=== PATIENT | male | born 1975 | race Caucasian/White ===

== ENCOUNTER 2020-10-12 08:15 | Emergency (ER) | payer BC, SELFPAY ==
[2020-10-12 08:28] VITALS: BP 137/94; PULSE 109; RESP 16; TEMP 37.3; O2SAT 99
--- NOTE | 2020-10-12 08:28 | ED.GENADULT ---
HPI - General Adult General Chief complaint: Urogenital-Male Stated complaint: uti Time Seen by Provider: 10/12/20 08:29 Source: patient and RN notes reviewed Mode of arrival: ambulatory Limitations: no limitations History of Present Illness HPI narrative: 45-year-old male presents with complaints of dysuria for 1 day. ?Aubrey reports increasing symptoms throughout the night, this morning noted blood in urine. ?Dysuria consists of burning, decreased urine, hematuria, suprapubic pain, and urgency.? No treatment.? History of dual kidney transplants, dialysis, and UTIs. ?Denies fever or chills.? Denies nausea, vomiting, and abdominal pain.? Tolerating po intake well. ?No genital discharge.? No concerns for STDs. ?No flank pain.? Exacerbating factors urinating.? Denies genital ?bleeding. ?Remains active. ?The patient reports he has not been diagnosed with COVID-19. ?The patient reports he received 2 Pfizer COVID-19 vaccines. ?The patient reports he is not waiting for the results of a COVID-19 lab test. ?The patient reports he does not have sweats, weakness, or fatigue. ?The patient reports he does not have a new or worsening cough or shortness of breath. ?Denies chest pain. ?The patient reports he does not have any rhinorrhea, congestion, loss of taste or smell, sore throat, and diarrhea. ?Denies recent traveling. ?Denies concerns for COVID-19 or exposures. At this time, the patient is not suspected of having COVID-19 Some parts of this dictation were generated by voice recognition software and may contain typographical and/or grammatical inaccuracies. Related Data Home Medications Medication Instructions Recorded Confirmed mycophenolate mofetil 10/12/20 tacrolimus 10/12/20 Allergies Allergy/AdvReac Type Severity Reaction Status Date / Time nafcillin Allergy Other Verified 10/12/20 08:35 Review of Systems Review of Systems: Narrative: CONSTITUTIONAL: Denies fever, chills, sweats. EYES: Denies visual changes, redness, discharge. ENT: Denies rhinorrhea, congestion, sore throat, otalgia. CARDIOVASCULAR: Denies chest pain, palpitations, edema. RESPIRATORY: Denies dyspnea, wheezing, cough. GASTROINTESTINAL: Denies abdominal pain, nausea, vomiting, diarrhea. GENITOURINARY: Complains of dysuria (burning, decreased urine, suprapubic pain, and urgency), hematuria. Denies abnormal discharge. SKIN: Denies rash or itching. MUSCULOSKELETAL: Denies acute back pain, joint pain, or myalgia. NEUROLOGIC: Denies numbness or focal weakness. PSYCHIATRIC: Denies anxiety or depression. All other systems reviewed are negative, except as documented in HPI and below. 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, was used for dialysis prior to kidney transplant History of recurrent UTIs Kidney transplant failure First transplant lasted for 14 years Urethral stricture At causing him to go into kidney failure Surgical History Surgical History (Updated 10/12/20 @ 08:59 by STEPHANIE Alexandra) History of abdominal surgery History of parathyroid surgery Hx of artificial heart valve replacement Kidney transplanted X2 dual Social History Social History (Updated 10/12/20 @ 09:00 by STEPHANIE Alexandra) Smoking status: Never smoker Tobacco type: cigarettes Second hand tobacco smoke exposure: No Alcohol intake: current Substance use: never Substance use type: does not use Living arrangements: with family Occupation/Education: occupation Gender identity (if verbalized by the patient): Male Sexual Orientation (if Verbalized by the Patient): Straight or Heterosexual Comments At time of signature, agree with the nurse past medical, surgical, social, and family history.? There is no relevant family history pertinent to the presenting complaint. Exam Narrative: Exam Narrative: GENERAL: This is a well-nourished, well-develope
[2020-10-12 08:36] VITALS: BP 137/94; PULSE 109; RESP 16; TEMP 37.3; O2SAT 99
[2020-10-12 09:00] VITALS: BP 132/86; PULSE 102
== END 2020-10-12 09:00 | disposition home or self-care (01) ==
PROVIDERS: Emergency Provider Nurse Practitioner Family
DX: R30.0 Dysuria (principal); Z94.0 Kidney transplant status; Z95.2 Presence of prosthetic heart valve
CPT/HCPCS: 81003; 87077; 87086; 87088; 99203; G0463

== ENCOUNTER 2020-11-20 08:16 | Emergency (ER) | payer BC, SELFPAY ==
--- NOTE | ~2020-11-20 | XR_ITS ---
EXAMINATION: XR chest 2V DATE: 11/20/2020 08:59 INDICATION: Cough TECHNIQUE: PA and lateral views of the chest are obtained. COMPARISON: None available FINDINGS: There are patchy bilateral airspace opacities. There is no pleural effusion or pneumothorax . The heart size is normal. The visualized bones and soft tissues are unremarkable. Median sternotomy wires are consistent with prior cardiac surgery. Surgical clips are also noted in the upper mediasti num as well as the upper abdomen. IMPRESSION: 1. Patchy bilateral airspace opacities, consistent with atelectasis versus pneumonia. Reviewed, dictated and finalized at location A. IMPRESSION: 1. Patchy bilateral airspace opacities, consistent with atelectasis versus pneu monia.
[2020-11-20 08:23] VITALS: BP 127/96; PULSE 96; RESP 18; TEMP 37.1; O2SAT 99
--- NOTE | 2020-11-20 08:50 | ED.URI ---
HPI - URI/Sore Throat General Chief Complaint: Upper Respiratory Infection Stated Complaint: Cough Time Seen by Provider: 11/20/20 08:34 Source: patient and RN notes reviewed Mode of arrival: ambulatory Limitations: no limitations History of Present Illness HPI Narrative: Patient presents today with a 6-day history of headache, body aches, postnasal drip, productive cough, sore throat, rhinorrhea. Denies fever. Patient has been taking some DayQuil with mild relief. He has history of 2 kidney transplants. Reports multiple sick contacts at work. He has had the COVID-19 vaccine. elicited complaint: cough Related Data Home Medications Medication Instructions Recorded Confirmed mycophenolate mofetil 10/12/20 tacrolimus 10/12/20 warfarin 5 mg PO DAILY 11/20/20 11/20/20 warfarin 7.5 mg PO DAILY 11/20/20 11/20/20 Allergies Allergy/AdvReac Type Severity Reaction Status Date / Time nafcillin Allergy Other Verified 10/12/20 08:35 Review of Systems Review of Systems: CONSTITUTIONAL: Denies fever, chills, or sweats.+ Body aches EYES: Denies visual changes, redness, or discharge. ENT: Denies congestion, or otalgia.+ Rhinorrhea, postnasal drip CARDIOVASCULAR: Denies chest pain, palpitations, or edema. RESPIRATORY: Denies dyspnea.+ Cough GASTROINTESTINAL: Denies abdominal pain, nausea, vomiting, or diarrhea. GENITOURINARY: Denies dysuria or hematuria. SKIN: Denies rash, itching, or wounds. MUSCULOSKELETAL: Denies back pain, joint pain, or myalgia. NEUROLOGIC: Denies numbness, tingling, or weakness.+ Headache PSYCH: Denies depression or anxiety. 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, was used for dialysis prior to kidney transplant History of recurrent UTIs Kidney transplant failure First transplant lasted for 14 years Urethral stricture At causing him to go into kidney failure Surgical History Surgical History History of abdominal surgery History of parathyroid surgery Hx of artificial heart valve replacement Kidney transplanted X2 dual Social History Social History Smoking status: Never smoker Tobacco type: cigarettes Second hand tobacco smoke exposure: No Alcohol intake: current Substance use: never Substance use type: does not use Gender identity (if verbalized by the patient): Male Comments At time of signature, I have reviewed and agree with nursing past medical, surgical, social and family history unless otherwise noted. Please see nursing chart for further information. There is no relevant family history pertinent to the presenting complaint Exam Narrative: GENERAL: Well-appearing, well-nourished, and in no acute distress. HEAD: Normocephalic, atraumatic. EYES: EOMI. No redness or drainage. Conjunctivae normal. ENT: Mucous membranes pink and moist. Nares clear. No rhinorrhea. TMs normal bilaterally. Throat normal. Uvula midline. NECK: Normal AROM. Supple. No lymphadenopathy. CHEST: No respiratory distress. Coarse in the bilateral bases, otherwise clear. HEART: Regular rate and rhythm. No murmur appreciated. Normal peripheral pulses. ABDOMEN: Soft, nontender, nondistended, normal active bowel sounds. MUSCULOSKELETAL: No bony tenderness. EXTREMITIES: Normal range of motion. No edema. SKIN: Warm, dry, no rash. Capillary refill normal. Normal skin turgor. NEURO: No focal deficits. Alert and oriented x3. Gait steady. PSYCH: Normal affect. No signs of depression or anxiety. Course Vital Signs Vital signs: Vital Signs Temperature 98.8 F 11/20/20 08:23 Pulse Rate 96 11/20/20 08:23 Respiratory Rate 18 11/20/20 08:23 Blood Pressure 127/96 H 11/20/20 08:23 Pulse Oximetry 99 11/20/20 08:23 Temperature 98.8 F 11/20/20
== END 2020-11-20 09:39 | disposition home or self-care (01) ==
PROVIDERS: Emergency Provider Nurse Practitioner
DX: J18.9 Pneumonia, unspecified organism (principal); Z20.822 Contact with and (suspected) exposure to COVID-19; Z94.0 Kidney transplant status; Z79.01 Long term (current) use of anticoagulants; Z95.2 Presence of prosthetic heart valve
CPT/HCPCS: 71046; 87426; 99213; C9803; G0463

== ENCOUNTER 2021-10-05 14:59 | Emergency (ER) | payer BC, SELFPAY ==
[2021-10-05 15:12] VITALS: BP 136/96; PULSE 82; RESP 16; TEMP 37.2; O2SAT 99
--- NOTE | 2021-10-05 15:17 | ED.RECABL ---
HPI - Recheck/Abnormal Lab/Rx General Chief Complaint: Recheck/Abnormal Lab/Rx Stated Complaint: Medicine Refill Time Seen by Provider: 10/05/21 15:02 Source: patient Mode of arrival: ambulatory Limitations: no limitations History of Present Illness HPI narrative: Mr. Chowdhury is a 46-year-old male patient presenting to the clinic today with complaints of being out of his Coumadin x2 days. 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 States that he takes 7.5 mg of Coumadin during the week and 5 mg on Friday and Friday. He does have an at home INR/PT machine. He denies any chest pain or shortness of breath at this time. He states that he has had a history of a transplant of the kidney in the past. Also reports the reasoning for taking the Coumadin is because he has heart valve. Related Data Home Medications Medication Instructions Recorded Confirmed mycophenolate mofetil 10/12/20 tacrolimus 10/12/20 warfarin 5 mg tablet 5 mg PO DAILY 11/20/20 11/20/20 warfarin 7.5 mg tablet 7.5 mg PO DAILY 11/20/20 11/20/20 Allergies Allergy/AdvReac Type Severity Reaction Status Date / Time nafcillin Allergy Other Verified 10/12/20 08:35 Review of Systems Review of Systems: Pertinent positives per HPI. Patient denies any fever, chills, rash, headache, visual changes, dizziness, cough, runny nose, sore throat, shortness of breath, chest pain, palpitations, nausea, vomiting, diarrhea, constipation, abdominal pain, or any urinary issues. 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, was used for dialysis prior to kidney transplant History of recurrent UTIs Kidney transplant failure First transplant lasted for 14 years Urethral stricture At causing him to go into kidney failure Surgical History Surgical History History of abdominal surgery History of parathyroid surgery Hx of artificial heart valve replacement Kidney transplanted X2 dual Social History Social History Smoking status: Never smoker Tobacco type: cigarettes Second hand tobacco smoke exposure: No Alcohol intake: current Substance use: never Substance use type: does not use Gender identity (if verbalized by the patient): Male Sexual Orientation (if Verbalized by the Patient): Straight or Heterosexual Comments At the time of my signature, I reviewed and agree with the nursing past medical, surgical, social, and family history. There is no relevant family history pertinent to the patient complaint. Exam Narrative: General: Well-developed, well nourished, in no apparent distress Head: Normocephalic, atraumatic Mouth: Oropharynx without lesions or masses, good dentition, MMM. Neck: Supple, trachea midline, no enlargement of anterior or posterior cervical nodes, no thyroid masses or goiter palpable. Cardio: Regular rate and rhythm, s1 and s2 normal, no murmur appreciated. Resp: Clear to auscultation bilaterally anteriorly and posteriorly, no rhonchi, rales, wheezing or rubs Course Course Emergency Course: Portions of this record may have been created with voice recognition software. Level of Care: Express Care Visit Vital Signs Vital signs: Vital Signs Temperature 37.2 C 10/05/21 15:12 Pulse Rate 82 10/05/21 15:12 Respiratory Rate 16 10/05/21 15:12 Blood Pressure 136/96 H 10/05/21 15:12 Pulse Oximetry 99 10/05/21 15:12 Oxygen Delivery Room Air 10/05/21 15:12 Temperature 37.2 C 10/05/21 15:21 Pulse Rate 82 10/05/21 15:21 Respiratory Rate 16 10/05/21 15:21 Blood Pressure 136/96 H 10/05/21 15:21 Pulse Oximetry 99 10/05/21 15:21 Oxygen Delivery Room Air 10/05/21 15:21 Vital signs reviewed MDM - Recheck/Abnormal Lab/Rx MDM Kailash
[2021-10-05 15:21] VITALS: BP 136/96; PULSE 82; RESP 16; TEMP 37.2; O2SAT 99
--- NOTE | 2021-10-05 15:26 | PC.NURSE ---
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
== END 2021-10-05 15:52 | disposition home or self-care (01) ==
PROVIDERS: Emergency Provider Nurse Practitioner Family
DX: Z76.0 Encounter for issue of repeat prescription (principal); Z94.0 Kidney transplant status; Z95.2 Presence of prosthetic heart valve
CPT/HCPCS: 99211; G0463

== ENCOUNTER 2022-01-23 16:14 | Outpatient (CLI) | payer BC, SELFPAY ==
[2022-01-25 09:51] LABS: Albumin Level 4.6 g/dL (3.5-5.1); Anion Gap 11 mmol/L (8-16); Blood Urea Nitrogen 34 mg/dL (9-20); Carbon Dioxide 26 mmol/L (22-30); Chloride 104 mmol/L (98-107); Estimated Glomerular Filt Rate 55; Glucose 104 mg/dL (65-110); Phosphorus 4.5 mg/dL (2.5-4.5); Sodium 141 mmol/L (137-145)
== END 2022-01-23 16:15 | disposition home or self-care (01) ==
LOC: ANHLAB 16:19
PROVIDERS: Visit Provider Internal Medicine Nephrology
DX: Z94.0 Kidney transplant status (principal)
CPT/HCPCS: 36415; 80069

== ENCOUNTER 2022-02-23 12:13 | Emergency (ER) | payer BC, SELFPAY ==
[2022-02-23 12:23] VITALS: BP 159/101; PULSE 99; RESP 16; TEMP 36.4; O2SAT 99
--- NOTE | 2022-02-23 12:49 | ED.GENADULT ---
HPI - General Adult General Chief complaint: Unspecified Stated complaint: pain Time Seen by Provider: 02/23/22 12:48 Mode of arrival: ambulatory Limitations: no limitations History of Present Illness HPI narrative: 46-year-old male presents with concern for pain in his right arm and right leg. He reports history of kidney transplant, he is on warfarin. He reports he had his blood drawn on Halloween and that caused a large bruise to his right arm. He reports that area is very painful on yo. He reports he was mountain biking and injured his right knee and now has a very large bruise that is very painful. He reports pain causes him trouble sleeping. MD complaint: Pain Related Data Home Medications Medication Instructions Recorded Confirmed mycophenolate sodium 360 mg 720 mg PO POST-TRANSFUSION 02/23/22 02/23/22 tablet,delayed release tacrolimus 1 mg capsule, 2 mg PO BID 02/23/22 02/23/22 immediate-release warfarin 7.5 mg tablet See Rx Instructions .Route .COMPLEX 02/23/22 02/23/22 Allergies Allergy/AdvReac Type Severity Reaction Status Date / Time nafcillin Allergy Other Verified 02/23/22 12:31 Review of Systems Review of Systems: CONSTITUTIONAL: Reports trouble sleeping CARDIOVASCULAR: Denies chest pain, palpitations, or edema. RESPIRATORY: Denies cough or dyspnea. 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, was used for dialysis prior to kidney transplant History of recurrent UTIs Kidney transplant failure First transplant lasted for 14 years Urethral stricture At causing him to go into kidney failure Surgical History Surgical History History of abdominal surgery History of parathyroid surgery Hx of artificial heart valve replacement Kidney transplanted X2 dual Social History Social History Smoking status: Never smoker Tobacco type: cigarettes Second hand tobacco smoke exposure: No Alcohol intake: current Substance use: never Substance use type: does not use Gender identity (if verbalized by the patient): Male Sexual Orientation (if Verbalized by the Patient): Straight or Heterosexual Comments At time of signature, agree with nursing past medical, surgical, social and family history. There is no relevant family history pertinent to the presenting complaint Exam Narrative: GENERAL: Nontoxic-appearing and in no acute distress. HEAD: Normocephalic, atraumatic. EYES: PERRLA, sclera clear ENT: Nares clear. Mucous membranes moist. NECK: Supple. CHEST: No respiratory distress. Speaks in full sentences. HEART: Regular rate and rhythm. EXTREMITIES: Grossly Normal range of motion. Mild edema noted to the right lower leg, large area of ecchymosis noted to the right inner thigh, right knee, right lower leg. Large area of ecchymosis noted to the right lower and upper arm SKIN: Warm, dry NEURO: Alert and oriented x3 PSYCH: Normal mood and affect Course Course Emergency Course: Patient is aware of, understands and agrees to be transferred to the emergency department. Patient agrees to proceed directly to the emergency department. Portions of this record may have been created with voice recognition software Level of Care: Express Care Visit Vital Signs Vital signs: Vital Signs Temperature 97.5 F L 02/23/22 12:23 Pulse Rate 99 02/23/22 12:23 Respiratory Rate 16 02/23/22 12:23 Blood Pressure 159/101 H 02/23/22 12:23 Pulse Oximetry 99 02/23/22 12:23 Oxygen Delivery Room Air 02/23/22 12:23 Temperature 97.5 F L 02/23/22 12:
== END 2022-02-23 12:59 | disposition short-term general hospital (02) ==
PROVIDERS: Emergency Provider Nurse Practitioner
DX: M79.601 Pain in right arm (principal); M79.604 Pain in right leg; R79.1 Abnormal coagulation profile; Z94.0 Kidney transplant status
CPT/HCPCS: 99212; G0463

== ENCOUNTER 2022-02-23 13:15 | Emergency (ER) | payer BC, SELFPAY ==
[2022-02-23 13:19] VITALS: BP 158/76; PULSE 100; RESP 16; TEMP 36.6; O2SAT 99
--- NOTE | 2022-02-23 13:40 | ECG_ITS ---
Measurements Intervals [place] Rate: 89 P: 104 [place]: 195 QRS: 65 QRSD: 160 T: 28 QT: 410 QTc: 500 Interpretive Statements SINUS RHYTHM ATRIAL PREMATURE COMPLEX RIGHT BUNDLE BRANCH BLOCK MINIMAL Q WAVES- INFERIOR LEADS BASELINE ARTIFACT- V4-V6 ABNORMAL ECG NO PREVIOUS ECG AVAILABLE FOR COMPARISON Electronically Signed On 02-23-2022 20:07:44 CDT by Dez Fonseca D.O.
--- NOTE | 2022-02-23 13:41 | ED.RECABL ---
HPI - Recheck/Abnormal Lab/Rx General Chief Complaint: Recheck/Abnormal Lab/Rx Stated Complaint: right arm/left leg/back pain Time Seen by Provider: 02/23/22 13:27 History of Present Illness HPI narrative: Patient is a 46-year-old male with a history of renal transplantation, artificial heart valve on warfarin presenting with bruising. Patient states that he injured his right knee about a week ago. Since that time he has developed extensive bruising of his right leg. He had his INR checked on the day after the injury and it was greater than 6 so he was advised to hold his Coumadin for 2 days. Patient states that he continues to have severe pain related to the bruising in his right leg and it has prevented him from being able to sleep so he went to urgent care today. He was then advised to come to the ER. Patient states he has been taking Tylenol with minimal relief. He denies numbness or weakness, fevers, chest pain, lightheadedness, palpitations, shortness of breath, abdominal pain, nausea or vomiting. Related Data Home Medications Medication Instructions Recorded Confirmed aspirin 81 mg chewable tablet 81 mg PO DAILY 02/23/22 02/23/22 mycophenolate sodium 360 mg 720 mg PO POST-TRANSFUSION 02/23/22 02/23/22 tablet,delayed release tacrolimus 1 mg capsule, 2 mg PO BID 02/23/22 02/23/22 immediate-release warfarin 7.5 mg tablet See Rx Instructions .Route .COMPLEX 02/23/22 02/23/22 Allergies Allergy/AdvReac Type Severity Reaction Status Date / Time nafcillin Allergy Intermediate Other Verified 02/25/22 12:29 Review of Systems Review of Systems: All systems reviewed & are unremarkable except as noted in HPI and below PMFSH Past Medical History Medical History Fistula And left upper arm, 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, was used for dialysis prior to kidney transplant History of recurrent UTIs Kidney transplant failure First transplant lasted for 14 years Urethral stricture At causing him to go into kidney failure Surgical History Surgical History History of abdominal surgery History of parathyroid surgery Hx of artificial heart valve replacement Kidney transplanted X2 dual Social History Social History Smoking status: Never smoker Tobacco type: cigarettes Second hand tobacco smoke exposure: No Alcohol intake: current Substance use: never Substance use type: does not use Gender identity (if verbalized by the patient): Male Sexual Orientation (if Verbalized by the Patient): Straight or Heterosexual Exam Narrative: GENERAL: Uncomfortable appearing HEAD: Normocephalic, atraumatic. EYES: PERRLA and EOMI. ENT: Nares clear, no rhinorrhea or epistaxis. Mucous membranes moist. NECK: Supple. CHEST: Clear to auscultation. No respiratory distress. HEART: Regular rate and rhythm. No murmur heard. Normal peripheral pulses. ABDOMEN: Soft, nontender, nondistended, normal active bowel sounds. EXTREMITIES: Normal range of motion. No edema. SKIN: Extensive ecchymosis on right leg in varying stages of healing, compartments are soft to palpation, distal pulses are 2+, no sensory deficit; there is also some ecchymosis on his right arm NEURO: No focal deficits. Alert and oriented x3. PSYCH: Normal mood and affect. Course Vital Signs Vital signs: Vital Signs Temperature 97.9 F 02/23/22 13:19 Pulse Rate 100 02/23/22 13:19 Respiratory Rate 16 02/23/22 13:19 Blood Pressure 158/76 H 02/23/22 13:19 Pulse Oximetry 99 02/23/22 13:19 Temperature 97.9 F 02/23/22 13:19 Pulse Rate 79 02/23/22 17:25 Respiratory Rate 18 02/23/22 17:25 Blood Pressure 158/76 H 02/23/22 13:19 Pulse Oximetry 100 02/23/22 17:25 MDM - Recheck/Abnormal Lab/Rx MDM Narrative Medical decision making narrative: Patient 46-year-old male presenting with
[2022-02-23] MEDS: SODIUM CHLORIDE 0.9% IV 1,000 ML 999 ML IV CONT (14:00)
[2022-02-23] MEDS: fentaNYL CITRATE INJ (*CRX) 100 MCG/2 ML VIAL 50 MCG IV PUSH (14:01)
[2022-02-23 14:04] LABS: Basophils Absolute Auto 0.1 K/mm3 (0.0-0.1); Basophils Percent Auto 0.8 % (0.2-1.2); Eosinophils Absolute Auto 0.2 K/mm3 (0-0.3); Eosinophils Percent Auto 2.3 % (0-4.4); Hematocrit 29.5 % (42.0-52.0); Hemoglobin 9.2 g/dL (14.0-18.0); Immature Granulocyte Absolute 0.02 K/mm3 (0.00-0.031); Immature Granulocyte Percent A 0.3 % (0-0.5); Lymphocytes Absolute Auto 1.27 K/mm3 (0.9-3.2); Lymphocytes Percent Auto 17.9 % (18.3-44.2); Mean Corpuscular HGB Conc 31.2 g/dl (32-36); Mean Corpuscular Hemoglobin 29.2 pg (26-34); Mean Corpuscular Volume 93.7 fl (80-100); Mean Platelet Volume 11.3 fl (7.4-10.4); Monocytes Absolute Auto 0.6 K/mm3 (0.1-0.6); Neutrophils Percent Auto 70.7 % (45.5-73.1); Platelet Count Result 195 k/mm3 (150-375); Red Blood Count 3.15 M/mm3 (4.6-6.20); Red Cell Distribution Width 13.9 % (11.5-14.5); White Blood Count 7.1 K/mm3 (4.5-10.0)
[2022-02-23 14:12] LABS: Alanine Aminotransferase 22 U/L (6-50); Albumin Level 4.7 g/dL (3.5-5.1); Alkaline Phosphatase 106 U/L (38-126); Anion Gap 12 mmol/L (8-16); Aspartate Amino Transferase 41 U/L (17-59); Bilirubin,Total 0.8 mg/dL (0.2-1.3); Blood Urea Nitrogen 21 mg/dL (9-20); Calcium 6.4 mg/dL (8.4-10.2); Carbon Dioxide 26 mmol/L (22-30); Chloride 104 mmol/L (98-107); Creatine Kinase 358 U/L (55-170); Estimated CRCL calculation 78 ml/min; Estimated Glomerular Filt Rate > 60; Glucose 106 mg/dL (65-110); Potassium 4.6 mmol/L (3.4-5.0); Sodium 142 mmol/L (137-145)
[2022-02-23 14:17] LABS: INR 1.8; Prothrombin Time 20.6 Seconds (11.1-14.7)
[2022-02-23 14:18] LABS: Partial Thromboplastin Time 38.9 SECONDS (22.3-36.8)
[2022-02-23 16:49] LABS: Appearance Urine Clear (Clear); Bilirubin Urine Negative (Negative); Blood Urine Trace-intact (Negative); Color Urine Yellow (Yellow); Glucose Urine UA Negative (Negative); Ketones Urine Negative (Negative); Leukocyte Esterase Ur Negative LEU/UL (Negative); Nitrate Urine Negative (Negative); Protein Urine Negative (Negative); Specific Grav Ur 1.015 (1.001-1.035); Urobilinogen Urine 0.2 mg/dL (<2.0)
[2022-02-23 16:54] LABS: Mucus Urine Rare /lpf; WBC Urine 0-3 /hpf
[2022-02-23 17:00] LABS: Add Urine Microscopic? YES
[2022-02-23 17:25] VITALS: PULSE 79; RESP 18; O2SAT 100
== END 2022-02-23 17:55 | disposition home or self-care (01) ==
PROVIDERS: Emergency Provider Emergency Medicine
DX: S70.11XA Contusion of right thigh, initial encounter (principal); D64.9 Anemia, unspecified; M79.604 Pain in right leg; Z94.0 Kidney transplant status; Z95.2 Presence of prosthetic heart valve; Z87.440 Personal history of urinary (tract) infections; Z79.01 Long term (current) use of anticoagulants; Z79.82 Long term (current) use of aspirin; X58.XXXA Exposure to other specified factors, initial encounter
CPT/HCPCS: 36415; 80053; 81001; 82550; 85025; 85610; 85730; 93005; 96361; 96365; 96375; 99284; J0131; J3010; J7030

== ENCOUNTER 2022-02-25 11:30 | Emergency (ER) | payer BC, SELFPAY ==
[2022-02-25 12:30] VITALS: BP 140/84; PULSE 102; RESP 18; TEMP 37.2; O2SAT 100
[2022-02-25 15:02] LABS: Basophils Percent Auto 0.6 % (0.2-1.2); Eosinophils Absolute Auto 0.2 K/mm3 (0-0.3); Eosinophils Percent Auto 3.7 % (0-4.4); Hematocrit 29.6 % (42.0-52.0); Hemoglobin 9.4 g/dL (14.0-18.0); Immature Granulocyte Absolute 0.01 K/mm3 (0.00-0.031); Immature Granulocyte Percent A 0.2 % (0-0.5); Lymphocytes Absolute Auto 1.32 K/mm3 (0.9-3.2); Lymphocytes Percent Auto 20.6 % (18.3-44.2); Mean Corpuscular HGB Conc 31.8 g/dl (32-36); Mean Corpuscular Hemoglobin 29.9 pg (26-34); Mean Corpuscular Volume 94.3 fl (80-100); Mean Platelet Volume 10.9 fl (7.4-10.4); Monocytes Absolute Auto 0.6 K/mm3 (0.1-0.6); Monocytes Percent Auto 9.8 % (2.6-8.5); Neutrophils Absolute Auto 4.2 K/mm3 (1.3-6.7); Neutrophils Percent Auto 65.1 % (45.5-73.1); Platelet Count Result 222 k/mm3 (150-375); Red Blood Count 3.14 M/mm3 (4.6-6.20); Red Cell Distribution Width 14.1 % (11.5-14.5); White Blood Count 6.4 K/mm3 (4.5-10.0)
[2022-02-25 15:12] LABS: Alanine Aminotransferase 22 U/L (6-50); Albumin Level 4.7 g/dL (3.5-5.1); Alkaline Phosphatase 95 U/L (38-126); Anion Gap 14 mmol/L (8-16); Aspartate Amino Transferase 40 U/L (17-59); Bilirubin,Total 0.8 mg/dL (0.2-1.3); Blood Urea Nitrogen 20 mg/dL (9-20); Calcium 6.3 mg/dL (8.4-10.2); Carbon Dioxide 29 mmol/L (22-30); Chloride 100 mmol/L (98-107); Estimated CRCL calculation 72 ml/min; Estimated Glomerular Filt Rate 59; Glucose 114 mg/dL (65-110); INR 1.9; Potassium 4.7 mmol/L (3.4-5.0); Prothrombin Time 21.4 Seconds (11.1-14.7); Sodium 143 mmol/L (137-145)
[2022-02-25 15:13] LABS: Partial Thromboplastin Time 37.4 SECONDS (22.3-36.8)
--- NOTE | 2022-02-25 16:59 | ED.GENADULT ---
HPI - General Adult General Chief complaint: Recheck/Abnormal Lab/Rx Stated complaint: bleeding, pain, seen here friday Time Seen by Provider: 02/25/22 14:30 Source: patient Mode of arrival: ambulatory Limitations: no limitations History of Present Illness HPI narrative: 46-year-old with a history of renal transplant, s/p mechanical valve here with complaints of bruising on his right arm as well as the left leg. Patient denies any trauma to his arm except for drawing blood, he stated he might have injured his left leg. She was seen in the ER few days ago for the same now he states that his bruising is getting much worse. He denies any chest pain, shortness of breath. No history of blood in the stool or in the urine. Denies any headache. Patient states that he has been taking Tylenol for pain with minimal relief. He states he is unable to sleep because of the pain. Onset (ago): day(s) (3) Location: upper extremity and lower extremity Radiation: non-radiation Severity: moderate Quality: burning Pain Consistency: constant Relieving factors: none Exacerbating factors: none Associated symptoms: denies other symptoms Related Data Home Medications Medication Instructions Recorded Confirmed aspirin 81 mg chewable tablet 81 mg PO DAILY 02/23/22 02/23/22 mycophenolate sodium 360 mg 720 mg PO POST-TRANSFUSION 02/23/22 02/23/22 tablet,delayed release tacrolimus 1 mg capsule, 2 mg PO BID 02/23/22 02/23/22 immediate-release warfarin 7.5 mg tablet See Rx Instructions .Route .COMPLEX 02/23/22 02/23/22 Allergies Allergy/AdvReac Type Severity Reaction Status Date / Time nafcillin Allergy Intermediate Other Verified 02/25/22 12:29 Review of Systems Review of Systems: All systems reviewed & are unremarkable except as noted in HPI and below Constitutional: Constitutional: Reports no additional constitutional complaints Eyes: Eyes: Reports no additional eye complaints ENT: Reports system reviewed and no additional complaints, except as documented Cardiovascular: Cardiovascular: Reports no additional cardiovascular complaints Respiratory: Respiratory: Reports no additional respiratory complaints Gastrointestinal: Gastrointestinal: Reports no additional gastrointestinal complaints Genitourinary: Genitourinary: Reports no additional male genitourinary complaints Musculoskeletal: Musculoskeletal: Reports as per HPI Neurologic: Reports system reviewed and no additional complaints, except as documented [facility] Past Medical History Medical History Fistula And left upper arm, 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, was used for dialysis prior to kidney transplant History of recurrent UTIs Kidney transplant failure First transplant lasted for 14 years Urethral stricture At causing him to go into kidney failure Surgical History Surgical History History of abdominal surgery History of parathyroid surgery Hx of artificial heart valve replacement Kidney transplanted X2 dual Social History Social History Smoking status: Never smoker Tobacco type: cigarettes Second hand tobacco smoke exposure: No Alcohol intake: current Substance use: never Substance use type: does not use Gender identity (if verbalized by the patient): Male Sexual Orientation (if Verbalized by the Patient): Straight or Heterosexual Exam Narrative: GENERAL: Well-appearing, well-nourished, and in no acute distress. HEAD: Normocephalic, atraumatic. EYES: PERRLA and EOMI.. NECK: Supple. CHEST: Clear to auscultation. No respiratory distress. HEART: Regular rate and rhythm. No murmur heard. Normal peripheral pulses. ABDOMEN: Soft, nontender, nondistended, normal active bowel sounds. EXTREMITIES: Normal range of motion. No edema. SKIN: Warm, dry, no rash. Diffuse ecchymosis on the right upper ex
[2022-02-25 17:13] VITALS: BP 152/86; PULSE 89; RESP 18; O2SAT 97
== END 2022-02-25 17:16 | disposition home or self-care (01) ==
PROVIDERS: Emergency Provider Family Medicine
DX: M79.601 Pain in right arm (principal); M79.605 Pain in left leg; S80.12XD Contusion of left lower leg, subsequent encounter; S40.021D Contusion of right upper arm, subsequent encounter; Z94.0 Kidney transplant status; Z79.01 Long term (current) use of anticoagulants; Z95.2 Presence of prosthetic heart valve; Z87.440 Personal history of urinary (tract) infections; X58.XXXD Exposure to other specified factors, subsequent encounter
CPT/HCPCS: 36415; 80053; 85025; 85610; 85730; 99283

== ENCOUNTER 2022-03-05 14:47 | Outpatient (RCR) | payer BC, SELFPAY ==
[2021-12-12 11:48] LABS: Basophils Absolute Auto 0.1 K/mm3 (0.0-0.1); Basophils Percent Auto 0.7 % (0.2-1.2); Eosinophils Absolute Auto 0.1 K/mm3 (0-0.3); Eosinophils Percent Auto 0.7 % (0-4.4); Hematocrit 38.2 % (42.0-52.0); Hemoglobin 12.1 g/dL (14.0-18.0); Immature Granulocyte Absolute 0.02 K/mm3 (0.00-0.031); Immature Granulocyte Percent A 0.3 % (0-0.5); Lymphocytes Absolute Auto 1.18 K/mm3 (0.9-3.2); Lymphocytes Percent Auto 16.5 % (18.3-44.2); Mean Corpuscular HGB Conc 31.7 g/dl (32-36); Mean Corpuscular Volume 94.6 fl (80-100); Mean Platelet Volume 12.6 fl (7.4-10.4); Monocytes Absolute Auto 0.7 K/mm3 (0.1-0.6); Monocytes Percent Auto 9.4 % (2.6-8.5); Neutrophils Absolute Auto 5.2 K/mm3 (1.3-6.7); Neutrophils Percent Auto 72.4 % (45.5-73.1); Platelet Count Result 172 k/mm3 (150-375); Red Blood Count 4.04 M/mm3 (4.6-6.20); Red Cell Distribution Width 13.3 % (11.5-14.5); White Blood Count 7.2 K/mm3 (4.5-10.0)
[2021-12-12 11:59] LABS: INR 1.2; Prothrombin Time 14.5 Seconds (11.1-14.7)
[2021-12-12 12:02] LABS: Alanine Aminotransferase 30 U/L (6-50); Alkaline Phosphatase 108 U/L (38-126); Anion Gap 12 mmol/L (8-16); Aspartate Amino Transferase 50 U/L (17-59); Bilirubin,Total 0.6 mg/dL (0.2-1.3); Blood Urea Nitrogen 27 mg/dL (9-20); Calcium 6.8 mg/dL (8.4-10.2); Carbon Dioxide 26 mmol/L (22-30); Chloride 100 mmol/L (98-107); Estimated Glomerular Filt Rate 41; Glucose 98 mg/dL (65-110); Potassium 4.5 mmol/L (3.4-5.0); Sodium 138 mmol/L (137-145)
[2021-12-17 15:45] LABS: INR 1.6; Prothrombin Time 18.3 Seconds (11.1-14.7)
[2021-12-31 16:05] LABS: INR 1.4; Prothrombin Time 16.3 Seconds (11.1-14.7)
[2022-01-07 17:08] LABS: INR 2.2; Prothrombin Time 23.7 Seconds (11.1-14.7)
[2022-01-23 17:09] LABS: Basophils Percent Auto 0.7 % (0.2-1.2); Eosinophils Absolute Auto 0.1 K/mm3 (0-0.3); Eosinophils Percent Auto 1.5 % (0-4.4); Hematocrit 34.5 % (42.0-52.0); Immature Granulocyte Absolute 0.01 K/mm3 (0.00-0.031); Immature Granulocyte Percent A 0.2 % (0-0.5); Lymphocytes Absolute Auto 1.45 K/mm3 (0.9-3.2); Lymphocytes Percent Auto 31.9 % (18.3-44.2); Mean Corpuscular HGB Conc 31.9 g/dl (32-36); Mean Corpuscular Hemoglobin 30.1 pg (26-34); Mean Corpuscular Volume 94.5 fl (80-100); Mean Platelet Volume 11.6 fl (7.4-10.4); Monocytes Absolute Auto 0.9 K/mm3 (0.1-0.6); Monocytes Percent Auto 19.3 % (2.6-8.5); Neutrophils Absolute Auto 2.1 K/mm3 (1.3-6.7); Neutrophils Percent Auto 46.4 % (45.5-73.1); Platelet Count Result 158 k/mm3 (150-375); Red Blood Count 3.65 M/mm3 (4.6-6.20); Red Cell Distribution Width 13.4 % (11.5-14.5); White Blood Count 4.6 K/mm3 (4.5-10.0)
[2022-01-23 17:21] LABS: INR 1.8
[2022-01-23 17:55] LABS: Albumin Level 4.6 g/dL (3.5-5.1); Anion Gap 12 mmol/L (8-16); Blood Urea Nitrogen 34 mg/dL (9-20); Carbon Dioxide 27 mmol/L (22-30); Chloride 101 mmol/L (98-107); Estimated Glomerular Filt Rate 55; Glucose 104 mg/dL (65-110); Phosphorus 4.6 mg/dL (2.5-4.5); Potassium 4.9 mmol/L (3.4-5.0); Sodium 140 mmol/L (137-145)
[2022-01-23 17:56] LABS: Alanine Aminotransferase 29 U/L (6-50); Albumin Level 4.6 g/dL (3.5-5.1); Alkaline Phosphatase 98 U/L (38-126); Anion Gap 10 mmol/L (8-16); Aspartate Amino Transferase 45 U/L (17-59); Bilirubin,Total 0.5 mg/dL (0.2-1.3); Blood Urea Nitrogen 34 mg/dL (9-20); Carbon Dioxide 29 mmol/L (22-30); Chloride 101 mmol/L (98-107); Estimated Glomerular Filt Rate 55; Glucose 101 mg/dL (65-110); Potassium 4.9 mmol/L (3.4-5.0); Sodium 140 mmol/L (137-145)
[2022-01-28 15:55] LABS: INR 1.7; Prothrombin Time 19.6 Seconds (11.1-14.7)
[2022-02-04 11:07] LABS: INR 3.3; Prothrombin Time 32.3 Seconds (11.1-14.7)
[2022-02-18 16:07] LABS: Prothrombin Time 51.2 Seconds (11.1-14.7)
[2022-02-18 16:45] LABS: INR 5.9
[2022-02-23 12:19] LABS: INR 1.8; Prothrombin Time 20.6 Seconds (11.1-14.7)
[2022-03-05 15:15] LABS: INR 3.2
== END 2022-03-12 23:59 | disposition home or self-care (01) ==
LOC: ANHLAB 14:47
PROVIDERS: Visit Provider Internal Medicine Cardiovascular Disease
DX: Z51.81 Encounter for therapeutic drug level monitoring (principal); Z95.2 Presence of prosthetic heart valve; Z79.01 Long term (current) use of anticoagulants
CPT/HCPCS: 36415; 80053; 80069; 85025; 85610

== ENCOUNTER 2022-04-30 14:41 | Outpatient (RCR) | payer BC, SELFPAY ==
[2022-03-19 15:22] LABS: INR 2.3; Prothrombin Time 24.4 Seconds (11.1-14.7)
[2022-03-30 14:30] LABS: INR 4.3; Prothrombin Time 40.1 Seconds (11.1-14.7)
[2022-04-30 15:25] LABS: INR 3.1; Prothrombin Time 31.1 Seconds (11.1-14.7)
== END 2022-06-17 23:59 | disposition home or self-care (01) ==
LOC: ANHLAB 14:41
PROVIDERS: Visit Provider Internal Medicine Cardiovascular Disease
DX: Z95.2 Presence of prosthetic heart valve (principal)
CPT/HCPCS: 36415; 85610

== ENCOUNTER 2022-04-30 14:47 | Outpatient (CLI) | payer BC, SELFPAY ==
[2022-04-30 15:20] LABS: Albumin Level 4.7 g/dL (3.5-5.1); Anion Gap 9 mmol/L (8-16); Blood Urea Nitrogen 21 mg/dL (9-20); Calcium 6.5 mg/dL (8.4-10.2); Carbon Dioxide 26 mmol/L (22-30); Chloride 105 mmol/L (98-107); Estimated Glomerular Filt Rate > 60; Glucose 124 mg/dL (65-110); Phosphorus 4.1 mg/dL (2.5-4.5); Potassium 4.2 mmol/L (3.4-5.0); Sodium 140 mmol/L (137-145)
== END 2022-04-30 14:48 | disposition home or self-care (01) ==
LOC: ANHLAB 14:50
PROVIDERS: Visit Provider Internal Medicine Nephrology
DX: Z94.0 Kidney transplant status (principal)
CPT/HCPCS: 36415; 80069

== ENCOUNTER 2022-05-04 11:18 | Emergency (ER) | payer BC, SELFPAY ==
[2022-05-04 11:37] VITALS: BP 144/95; PULSE 107; RESP 16; TEMP 36.7; O2SAT 97
--- NOTE | 2022-05-04 12:36 | ED.MALEGU ---
HPI - Male Genitourinary General Chief complaint: Urogenital-Male Stated complaint: blood in urine Time Seen by Provider: 05/04/22 12:36 Source: patient, RN notes reviewed and old records reviewed Mode of arrival: ambulatory Limitations: no limitations History of Present Illness HPI Narrative: 47-year-old male who presents to [facility] with complaints of concern for UTI and noted blood in his urine since yesterday, reports that he feels fatigued and sore all over. Patient reports that he noted some streaks of blood in his urine today and is concerned for obstruction. Patient has had kidney transplant X2 and also artificial heart aortic valve replacement in past. Patient is on Warfarin daily last PT31.1, INR 3.1 on 04/30/2022. Patient reports that he as appointment with his business services officer this week. Patient reports that he has not tried to get ahold of his business services officer or cardiac physician.Patient reports that he has had COVID vaccinations but not the flu shot. MD Complaint: other (blood in urine) Onset (ago): day(s) (1) Associated symptoms: Reports blood in urine Related Data Home Medications Medication Instructions Recorded Confirmed aspirin 81 mg chewable tablet 81 mg PO DAILY 02/23/22 05/04/22 mycophenolate sodium 360 mg 720 mg PO POST-TRANSFUSION 02/23/22 05/04/22 tablet,delayed release tacrolimus 1 mg capsule, 2 mg PO BID 02/23/22 05/04/22 immediate-release warfarin 7.5 mg tablet See Rx Instructions .Route .COMPLEX 02/23/22 05/04/22 Allergies Allergy/AdvReac Type Severity Reaction Status Date / Time nafcillin Allergy Intermediate Other Verified 05/04/22 11:22 Review of Systems Review of Systems: CONSTITUTIONAL: Denies fever, chills, or sweats. feels sore all over and fatigued CARDIOVASCULAR: Denies chest pain, palpitations, or edema. RESPIRATORY: Denies cough or dyspnea. GASTROINTESTINAL: Denies abdominal pain, nausea, vomiting, or diarrhea. GENITOURINARY: Reports dysuria, frequency, urgency. Denies flank pain positive for hematuria. SKIN: Denies rash or itching. MUSCULOSKELETAL: Denies back pain or myalgia. Denies CVA tenderness NEUROLOGIC: Denies headache All systems reviewed & are unremarkable except as noted in HPI and below PMFSH Past Medical History Medical History Fistula And left upper arm, not in use, was used for dialysis prior to kidney transplant History of recurrent UTIs Kidney transplant failure First transplant lasted for 14 years Urethral stricture At causing him to go into kidney failure Surgical History Surgical History History of abdominal surgery History of parathyroid surgery Hx of artificial heart valve replacement Kidney transplanted X2 dual Social History Social History Smoking status: Never smoker Tobacco type: cigarettes Second hand tobacco smoke exposure: No Alcohol intake: current Substance use: never Substance use type: does not use Gender identity (if verbalized by the patient): Male Sexual Orientation (if Verbalized by the Patient): Straight or Heterosexual Comments At time of signature, agree with nursing past medical, surgical, social and family history. There is no relevant family history pertinent to the presenting complaint Exam Narrative: GENERAL: Well-appearing, well-nourished, and in no acute distress. HEAD: Normocephalic, atraumatic. NECK: Supple.no lymphadenopathy CHEST: Clear to auscultation. No respiratory distress.SAO2 97% on room air HEART: Regular rate and rhythm. No murmur heard. Normal peripheral pulses. ABDOMEN: Soft, nontender, nondistended, normal active bowel sounds. No CVA tenderness urine pink in color slightly cloudy EXTREMITIES: Normal range of motion. No edema. SKIN: Warm, dry, no rash. NEURO: No focal deficits. Alert and oriented x3. Course Course Emerg
== END 2022-05-04 13:04 | disposition home or self-care (01) ==
PROVIDERS: Emergency Provider Registered Nurse
DX: R31.9 Hematuria, unspecified (principal); Z94.0 Kidney transplant status; Z95.2 Presence of prosthetic heart valve
CPT/HCPCS: 81003; 99212; G0463

== ENCOUNTER 2022-11-11 14:47 | Outpatient (CLI) | payer BC, SELFPAY ==
[2022-11-11 15:35] LABS: Albumin Level 4.8 g/dL (3.5-5.1); Anion Gap 13 mmol/L (8-16); Blood Urea Nitrogen 28 mg/dL (9-20); Calcium 6.4 mg/dL (8.4-10.2); Carbon Dioxide 24 mmol/L (22-30); Chloride 103 mmol/L (98-107); Estimated Glomerular Filt Rate > 60; Glucose 127 mg/dL (65-110); Phosphorus 3.9 mg/dL (2.5-4.5); Potassium 4.2 mmol/L (3.4-5.0); Sodium 140 mmol/L (137-145)
[2022-11-11 15:39] LABS: Creatinine Urine 74.6 mg/dL; Total Protein Urine Random 11 mg/dL; Ur Ttl Prot Creatinine Ratio 0.15 mg/mg (0-0.20)
== END 2022-11-11 14:48 | disposition home or self-care (01) ==
LOC: ANHLAB 14:47
PROVIDERS: Visit Provider Internal Medicine Nephrology
DX: Z94.0 Kidney transplant status (principal)
CPT/HCPCS: 36415; 80069; 82570; 84156

== ENCOUNTER 2022-12-24 14:28 | Outpatient (RCR) | payer BC, SELFPAY ==
[2022-11-11 15:34] LABS: INR 1.7; Prothrombin Time 21.5 Seconds (11.1-14.7)
[2022-11-29 14:55] LABS: INR 1.8; Prothrombin Time 22.6 Seconds (11.1-14.7)
[2022-12-12 15:19] LABS: Prothrombin Time 24.2 Seconds (11.1-14.7)
[2022-12-24 15:28] LABS: INR 3.4; Prothrombin Time 37.3 Seconds (11.1-14.7)
== END 2023-02-09 23:59 | disposition home or self-care (01) ==
LOC: ANHLAB 14:28
PROVIDERS: Visit Provider Internal Medicine Cardiovascular Disease
DX: Z51.81 Encounter for therapeutic drug level monitoring (principal); Z95.2 Presence of prosthetic heart valve; Z79.01 Long term (current) use of anticoagulants
CPT/HCPCS: 36415; 85610

== ENCOUNTER 2023-05-03 09:57 | Outpatient (RCR) | payer BC, SELFPAY ==
[2023-05-03 10:22] LABS: INR 4.8; Prothrombin Time 49.9 Seconds (11.1-14.7)
== END 2023-08-01 23:59 | disposition home or self-care (01) ==
LOC: ANHLAB 09:57
PROVIDERS: Visit Provider Internal Medicine Cardiovascular Disease
DX: Z51.81 Encounter for therapeutic drug level monitoring (principal); Z95.2 Presence of prosthetic heart valve; Z79.01 Long term (current) use of anticoagulants
CPT/HCPCS: 36415; 85610

== ENCOUNTER 2023-05-19 15:02 | Outpatient (CLI) | payer BC, SELFPAY ==
[2023-05-19 15:45] LABS: Albumin Level 4.4 g/dL (3.5-5.1); Anion Gap 9 mmol/L (8-16); Blood Urea Nitrogen 24 mg/dL (9-20); Calcium 6.8 mg/dL (8.4-10.2); Carbon Dioxide 27 mmol/L (22-30); Chloride 104 mmol/L (98-107); Estimated Glomerular Filt Rate 59; Glucose 115 mg/dL (65-110); Phosphorus 3.6 mg/dL (2.5-4.5); Potassium 4.5 mmol/L (3.4-5.0); Sodium 140 mmol/L (137-145)
[2023-05-19 16:20] LABS: Creatinine Urine 42.7 mg/dL; Total Protein Urine Random 12 mg/dL; Ur Ttl Prot Creatinine Ratio 0.28 mg/mg (0-0.20)
== END 2023-05-19 15:03 | disposition home or self-care (01) ==
LOC: ANHLAB 15:03
PROVIDERS: Visit Provider Internal Medicine Nephrology
DX: Z94.0 Kidney transplant status (principal)
CPT/HCPCS: 36415; 80069; 82570; 84156

== ENCOUNTER 2023-11-21 14:39 | Outpatient (RCR) | payer OTHER, SELFPAY ==
[2023-09-19 13:33] LABS: INR 2.2; Prothrombin Time 25.8 Seconds (11.1-14.7)
[2023-10-06 15:59] LABS: INR 2.7
[2023-11-21 15:42] LABS: INR 2.7; Prothrombin Time 29.8 Seconds (11.1-14.7)
== END 2023-12-18 23:59 | disposition home or self-care (01) ==
LOC: ANHLAB 14:39
PROVIDERS: Visit Provider Internal Medicine Cardiovascular Disease
DX: Z51.81 Encounter for therapeutic drug level monitoring (principal); Z95.2 Presence of prosthetic heart valve; Z79.01 Long term (current) use of anticoagulants
CPT/HCPCS: 36415; 85610

== ENCOUNTER 2024-04-30 07:08 | Outpatient (RCR) | payer OTHER, SELFPAY ==
[2024-03-01 15:26] LABS: Prothrombin Time 31.2 Seconds (11.1-14.7)
[2024-04-19 10:05] LABS: INR 1.8; Prothrombin Time 21.4 Seconds (11.1-14.7)
[2024-04-30 07:43] LABS: INR 2.6; Prothrombin Time 27.9 Seconds (11.1-14.7)
== END 2024-05-30 23:59 | disposition home or self-care (01) ==
LOC: ANHLAB 07:08
PROVIDERS: Visit Provider Internal Medicine Cardiovascular Disease
DX: Z51.81 Encounter for therapeutic drug level monitoring (principal); Z79.01 Long term (current) use of anticoagulants
CPT/HCPCS: 36415; 85610

== ENCOUNTER 2024-06-10 00:54 | Day surgery (SDC) | payer OTHER, SELFPAY ==
[2024-06-09 11:10] VITALS: BMI 26.4
[2024-06-10] VITALS (10 sets, daily range): BP systolic 108–155; BP diastolic 63–99; PULSE 67–124; RESP 13–20; TEMP 36.7–37; O2SAT 92–100
--- OUTSIDE RECORDS SUMMARY | 2024-06-10 00:56 | XMS_ITS ---
Author Organization [facility]en ([facility]) Address [address] [place] [id number] Care Team Providers Care Plate And Weld Inspector Name Role Phone Unavailable Unavailable Unavailable Allergies, Adverse Reactions, Alerts This patient has no known allergies or adverse reactions. Problems This patient has no known problems.
--- OUTSIDE RECORDS SUMMARY | 2024-06-10 00:56 | XMS_ITS | Encounter Summary ---
Author Organization [facility] Address [address] [place] [address] Care Team Providers Care Physical Therapy Teacher Name Role Phone Pcp, Non-Ah Primary Care Provider Unavailabl e Pcp Outside [facility], Unknown Primary Care Provider U navailable Encounter Details Date Type Department Care Team (Late st Contact Info) Description 05/12/2013 Off Premise [facility] Laboratory [address] [place] [address] Social History Tobacco Use Types Packs/Day Years Used Date Smoking Tobacco: Never Smokeless Tobacco: Never Alcohol Use Standard Drinks/Week Comments Yes 0 (1 standard drink = 0.6 oz pure alcohol) occasional drinks, few times a year Sex and Gender Information Value Date Recorded Sex Assigned at Not on file Gender Identity Not on file Sexual Orientation Not on file documented as of this encounter Miscellaneous Notes * Scan - HIM SCANNER - 05/13/2013 11:38 AM CST ED CANDLES WICKER documented in this encounter Plan of Treatment Not on file documented as of this encounter Visit Diagnoses Not on filedocumented in this encounter Care Teams Physical Therapy Teacher Relationship Specialty Start Date End Date Pcp, Non-Ah PCP - General 07/12/13 10/28/23 Pcp Outside [facility], Unknown NO KNOWN ADDRESS ON FILE PCP - General 10/29/23 documented as of this encounter
--- OUTSIDE RECORDS SUMMARY | 2024-06-10 00:56 | XMS_ITS | Clinical Summary ---
Author Organization [facility] [place] [facility] [employer] [facility] Address [address] [address] Phone Care Team Providers Care Power Reactor Supervisor Name Role Phone Lyndon Lockhart MD Primary Care Provider + Allergies No known active allergies Medications warfarin (COUMADIN) 5 MG tablet Take 5mg by mouth two times a week 30 tablet 1 1 Active cholecalciferol (VITAMIN D-3) 50 MCG (1999) capsule Take 1 capsule (2,000 Units total) by mouth 1 (one) time each day 30 capsule 11 1 Active warfarin (COUMADIN) 7.5 MG tablet TAKE 7.5MG BY MOUTH FIVE TIMES A WEEK 75 tablet 1 Active tacrolimus (PROGRAF) 1 MG capsule Take 2 capsules (2 mg total) by mouth in the morning and 2 capsules (2 mg total) in the evening. CALL OFFICE FOR AN APPT FOR ADDITIONAL REFILLS.. 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 0 10/17/2020 Urethral stricture 10/17/2020 Status post nephrectomy 10/17/2020 History of mechanical prosthetic mitral valve re placement 10/17/2020 Osteoarthritis 10/17/2020 Secondary hyperparathyroidism of renal origin History of parathyroidectomy 10/17/2020 Hypoparathyroidism 10/17/2020 Social History Tobacco Use Types Packs/Day Years Used Date Smoking Tobacco: Never Smokeless Tobacco: Never Alcohol Use Standard Drinks/Week Comments Yes 0 (1 standard drink = 0.6 oz pur e alcohol) Sex and Gender Information Value Date Recorded Sex Assigned at Not on file Legal Sex Male 4:23 PM EDT Gender Identity Not on file Sexual Orientation Not on file Last Filed Vital Signs Vital Sign Reading Time Taken Comments Blood Pressure 130/80 01/23/2021 11:24 AM CDT Pulse 102 01/23/2021 11:24 AM CDT Temperature 36 C (96.8 F) 01/23/2021 11:24 AM CDT Respiratory Rate 18 01/23/2021 11:24 AM CDT Oxygen Saturation 99% 01/23/2021 11:24 AM CDT Inhaled Oxygen Concentration - - Weight 86.6 kg (191 lb) 01/23/2021 11:24 AM CDT Height 185.4 cm (6' 1 ) 01/23/2021 11:24 AM CDT Body Mass Index 25.2 01/23/2021 11:24 AM CDT Plan of Treatment Health Maintenance Due Date Last Done Comments Pneumococcal Vaccine: Pediat rics (0 to 5 Years) and At-Risk Patients (6 to 64 Years) (1 of 2 - PCV) 1981 Hepatitis B Vaccine (1 of 3 - 19+ 3-dose series) 04/10 Influenza Vaccine (#1) 2023 Insurance [facility] Care Teams Power Reactor Supervisor Relationship Specialty [place] [address] [place] [phone] PCP - General 11/28/21
--- OUTSIDE RECORDS SUMMARY | 2024-06-10 00:56 | XMS_ITS | Encounter Summary ---
Author Organization [facility] , [facility] Address [address] [place] [phone] Phone Care Team Providers Care Escalator Operator Name Role Phone Lyndon Lockhart MD Primary Care Provider + Reason for Visit * Reason Comments Med Change Request Encounter Details Date Type Department Care Team (Late st Contact Info) Description 05/24/2021 Refill [place] [facility], [address] [address] [place] [address] [place] [address] [address] [place] [address] Social History Tobacco Use Types Packs/Day Years [...] on file documented as of this encounter Plan of Treatment Not on file documented as of this encounter Visit Diagnoses Not on filedocumented in this encounter Care Teams Escalator Operator Relationship Specialty Start [place] [address] [place] [address] PCP - General 11/28/21 documented as of this encounter
--- OUTSIDE RECORDS SUMMARY | 2024-06-10 00:56 | XMS_ITS | Encounter Summary ---
Author Organization [employer] [facility] , [facility] Address [address] [place] [phone] Phone Care Team Providers Care Third Steel Pourer Name Role Phone Lyndon Lockhart MD Primary Care Provider + Reason for Visit * Reason Comments Med Change Request Encounter Details Date Type Department Care Team (Late st Contact Info) Description 11/08/2021 Refill [place] [employer] [facility], [address] [address] [place] [address] [place] [address] [address] [place] [address] Social History Tobacco Use Types [...] on filedocumented in this encounter Care Teams Third Steel Pourer Relationship Specialty [place] [address] [place] [phone] PCP - General 11/28/21 documented as of this encounter
--- OUTSIDE RECORDS SUMMARY | 2024-06-10 00:56 | XMS_ITS | Clinical Summary ---
Author Organization [facility] Address [address] [place] [address] Care Team Providers Care Supervisor Dock Name Role Phone Pcp Outside [facility], Unknown Primary Care Provider U navailable Allergies Active Allergy Reactions Criticality Noted Date Comments Nafcillin RASH High Vancomycin RASH High Flushing of skin. Medications Medication Sig Dispensed Refills Start Date End Date Status folic acid (FOLATE) 1 MG tablet Take 1 mg by mouth nightly. Active lansoprazole (PREVACID) 15 MG capsule Take 15 mg by mouth nightly. Active simvastatin (ZOCOR) 10 MG tablet Take 1 tablet by mouth nightly. Active Glucosamine-Chondroi tin-MSM (TRIPLE FLEX PO) Take 2 tablets by mouth 2 times daily. Active NIFEdipine (PROCARDIA) 90 MG 24 hr tablet Take 1 tablet by mouth daily. 30 tablet 6 04/01/2014 Active metoPROLOL (LOPRESSOR) 50 MG tablet Take 50 mg by mouth 2 times daily. 04/01/2014 Active levothyroxine (SYNTHROID, LEVOTHROID) 100 MCG tablet Take 1 tablet by mouth nightly. 30 tablet 11 08/25/2014 Active tacrolimus (PROGRAF) 1 MG capsule Take 3 mg by mouth 2 times daily. Active warfarin (COUMADIN) 5 MG tablet TAKE 1-1.5 TABLET BY MOUTH EVERY DAY DIRECTED 45 tablet 3 03/19/2016 Active Active Problems Problem Noted Date Diagnosed Date ED (erectile dysfunction) 03/18/2014 H/O mitral valve replacement with mechanical cali ve 01/18/2014 Renal dialysis status(V45.11) 09/30/2012 Awaiting organ transplant status 09/30/2012 Anemia, unspecified 03/27/2012 LVH (left ventricular hypertrophy) 12/02/2011 Overview (12/02/2011): Per echo: severe LVH, normal appearance of valve 06/2010 Dyspnea 12/02/2011 Hx of kidney transplant (CMD) 06/03/2011 Hypertension 06/03/2011 History of mitral valve prosthesis 05/31/2011 Overview (06/15/2012): [facility] Mechanical Renal insufficiency 05/31/2011 Overview (03/18/2014): S/p renal transplant, Dialysis, and re-transplant 08/2013 [facility] Dyslipidemia 05/31/2011 Immunizations Name Administration Dates Next Due Hep B, adult 05/11/2011 Influenza, split virus, trivalent 2012,01/20/2012,01/31/2010,02/05,03/09/2001,01/23/1999,03/08/1997 ,01/29/1996 MMR 07/25/1992 Novel Influenza [id number], Uns pecified Formulation 02/16/2009 PPD 03/23/2011 Pneumococcal Polysaccharide PPV23 01/21/2011, Surgical History Surgery Date Site/Laterality Comments RENAL BIOPSY of transplanted kidney HB CYSTOSCOPY 2010 CARDIAC SURGERY 1995 MVR secondary to endocarditis, [facility] Valve VASCULAR SURGERY ABDOMEN SURGERY SKIN BIOPSY SERVICE TO GASTROENTEROLOGY 04/2006 colonoscopy KIDNEY TRANSPLANT 1997 dwayne diego [facility] Medical History Medical History Date Comments Essential (primary) hypertension Since age 19 MVP (mitral valve prolapse) Dyslipidemia Anemia 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 Blood transfusion Failed moderate sedation during procedure Pneumonia Other and unspecified hyperlipidemia Esophageal reflux Personal history of traumatic fracture Other chronic pain Thyroid condition End stage renal disease (CMD) 2010 re sumed dialysis at [facility], [phone] [facility]. Kidney disease followed by Dr. Miller Family History Medical History Relation Comments Early Father Heart disease Father fatal mi Hypertension Father Early Mother Heart disease Paternal Grandfather High blood pressure Paternal Grandfather Hypertension Paternal Grandfather Osteoarthritis Paternal Grandfather High blood pressure Paternal Grandmother Hypertension Paternal Grandmother Osteoarthritis Paternal Grandmother Relation Status Comments Father (Age 48) Mother Paternal Grandfather Paternal Grandmother Social History Tobacco Use Types Packs/Day Years Used Date Smoking Tobacco: Never Smokeless Tobacco: Never Alcohol Use Standard Drinks/Week Comments Yes 0 (1 standard drink = 0.6 oz pure alcohol) occasional drinks, few times a year Inadequate Housing Answer Date Recorded Social Determinants: Housing (Overall Score Help er) 0 12/06/2018 Sex and Gender Information Value Date Recorded Sex Assigned at Not on file Gender Identity Not on file Sexual Orientation Not on file Obstetrics History Last Filed Vital Signs Vital Sign Reading Time Taken Comments Blood Pressure 106/56 03/29/2015 12:43 AM MUNICIPAL ENGINEER Pulse 77 03/29/2015 12:43 AM MUNICIPAL ENGINEER Temperature 36.8 C (98.2 F) 03/28/2015 8:43 PM MUNICIPAL ENGINEER Respiratory Rate 18 03/29/2015 12:43 AM MUNICIPAL ENGINEER Oxygen Saturation 97% 03/29/2015 12:43 AM MUNICIPAL ENGINEER Inhaled Oxygen Concentration - - Weight 81.6 kg (180 lb) 03/28/2015 8:43 PM MUNICIPAL ENGINEER Height 174.6 cm (5' 8.75 ) 03/28/2015 8:43 PM CS T Body Mass Index 26.78 03/28/2015 8:43 PM MUNICIPAL ENGINEER Plan of Treatment Health Maintenance Due Date Last Done Comments Depression Screening 1987 DTaP/Tdap/Td Vaccine (1 - Tdap) 1994 Hepatitis B Vaccine (2 of 3 - 19+ 3-dose series) 06/08/2011 05/11/2011 CT Colonography 2020 Cologuard 2020 Colonoscopy 2020 Colorectal Cancer Screen 2020 Fecal Occult Blood 2020 Sigmoidoscopy 2020 COVID-19 Vaccine ( season) 2023 Influenza Vaccine (#1) 2023 3, 01/20/2012, 01/31/2010, Additional history exists Pneumococcal Vaccine 0-49 Aged Out 01/21/2011, No longer eligible based on patient's age to complete this topic HPV Vaccine Aged Out No longer eligi ble based on patient's age to complete this topic Hepatitis A Vaccine Aged Out No longe r eligible based on patient's age to complete this topic Meningococcal Serogroup B Vaccine Aged Out No longer eligible based on patient's age to complete this topic Meningococcal Vaccine Aged Out No rosanna abraham eligible based on patient's age to complete this topic Advance Directives * Full Resuscitation (Latest Code Status on File) Date Activated Date Inactivated Comments 02/05/2013 3:04 PM 02/07/2013 4:31 AM * Full Resuscitation Date Activated Date Inactivated Comments 02/05/2013 12:30 PM 02/05/2013 3:04 PM * Full Resuscitation Date Activated Date Inactivated Comments 08/25/2012 4:50 PM 08/26/2012 7:43 AM * Full Resuscitation Date Activated Date Inactivated Comments 07/16/2012 10:58 AM 07/16/2012 8:23 PM * Full Resuscitation Date Activated Date Inactivated Comments 03/31/2012 3:03 PM 03/31/2012 11:08 PM Care Teams Supervisor Dock Relationship Specialty Start Date End Date Pcp Outside [facility], Unknown NO KNOWN ADDRESS ON FILE PCP - General 10/29/23
--- OUTSIDE RECORDS SUMMARY | 2024-06-10 00:56 | XMS_ITS | Encounter Summary ---
Author Organization [facility] Address [address] [place] [address] Care Team Providers Care Pm Technician Name Role Phone Jane Patel MD Primary Care Provider [phone] Pcp, Non- Primary Care Provider Unavailabl e Pcp Outside [facility], Unknown Primary Care Provider U navailable Encounter Details Date Type Department Care Team (Late st Contact Info) Description 07/05/2011 Off Premise [facility] Abdominal Transplant Clinic [address] [facility] [address] [place], [place] [id number] Social History Tobacco Use Types Packs/Day Years Used Date Smoking Tobacco: Never Alcohol Use Standard Drinks/Week Comments Not Asked 0 (1 standard drink = 0.6 oz pur e alcohol) Sex and Gender Information Value Date Recorded Sex Assigned at Not on file Gender Identity Not on file Sexual Orientation Not on file documented as of this encounter Miscellaneous Notes * Scan - HIM SCANNER - 07/08/2011 11:24 AM CDT documented in this encounter Plan of Treatment Not on file documented as of this encounter Visit Diagnoses Not on filedocumented in this encounter Care Teams Pm Technician Relationship Specialty Start Date End Date Jane Patel MD [address] [facility] [address] [place] [address] PCP - General Internal Medicine 06/12/11 10/24/11 Pcp, Non- PCP - General 07/12/13 10/28/23 Pcp Outside [facility], Unknown NO KNOWN ADDRESS ON FILE PCP - General 10/29/23 documented as of this encounter
--- OUTSIDE RECORDS SUMMARY | 2024-06-10 00:56 | XMS_ITS | Encounter Summary ---
Author Organization [facility] Address [address] [place] [address] Care Team Providers Care Sterile Processing Manager Name Role Phone Pcp, Non- Primary Care Provider Unavailabl e Pcp Outside [facility], Unknown Primary Care Provider U navailable Encounter Details Date Type Department Care Team (Late st Contact Info) Description 09/30/2012 Off Premise [facility] Abdominal Transplant Clinic [address] [facility] [address] [address] Social History Tobacco Use Types Packs/Day Years Used Date Smoking Tobacco: Never Smokeless Tobacco: Never Alcohol Use Standard Drinks/Week Comments Yes 0 (1 standard drink = 0.6 oz pur e alcohol) occasional drinks Sex and Gender Information Value Date Recorded Sex Assigned at Not on file Gender Identity Not on file Sexual Orientation Not on file documented as of this encounter Miscellaneous Notes * Scan - HIM SCANNER - 10/01/2012 7:59 PM CDT documented in this encounter Plan of Treatment Not on file documented as of this encounter Visit Diagnoses Not on filedocumented in this encounter Care Teams Sterile Processing Manager Relationship Specialty Start Date End Date Pcp, Non-Ah PCP - General 07/12/13 10/28/23 Pcp Outside [facility], Unknown NO KNOWN ADDRESS ON FILE PCP - General 10/29/23 documented as of this encounter
--- OUTSIDE RECORDS SUMMARY | 2024-06-10 00:56 | XMS_ITS | Referral Summary ---
Author Organization [facility] Address [address] [place] [address] Care Team Providers Care Cytotechnologist/Histotechnologist Name Role Phone Pcp Outside [facility], Unknown Primary Care Provider U navailable [...] trivalent 2012,01/20/2012,01/31/2010,02/05,03/09/2001,01/23/1999,03/08/1997 ,01/29/1996 MMR 07/25/1992 Novel Influenza [id number], Uns pecified Formulation 02/16/2009 PPD 03/23/2011 Pneumococcal Polysaccharide PPV23 01/21/2011, Social History Tobacco Use Types Packs/Day Years [...] Comments Blood Pressure 106/56 03/29/2015 12:43 AM STORAGE SPECIALIST Pulse 77 03/29/2015 12:43 AM STORAGE SPECIALIST Temperature 36.8 C (98.2 F) 03/28/2015 8:43 PM STORAGE SPECIALIST Respiratory Rate 18 03/29/2015 12:43 AM STORAGE SPECIALIST Oxygen Saturation 97% 03/29/2015 12:43 AM STORAGE SPECIALIST Inhaled Oxygen Concentration - - Weight 81.6 kg (180 lb) 03/28/2015 8:43 PM STORAGE SPECIALIST Height 174.6 cm (5' 8.75 ) 03/28/2015 8:43 PM CS T Body Mass Index 26.78 03/28/2015 8:43 PM STORAGE SPECIALIST Plan of Treatment Not on file Advance Directives * Full Resuscitation (Latest Code [...] 3:03 PM 03/31/2012 11:08 PM Care Teams Cytotechnologist/Histotechnologist Relationship Specialty Start Date End Date Pcp Outside [facility], Unknown NO KNOWN ADDRESS ON FILE PCP - General 10/29/23
--- OUTSIDE RECORDS SUMMARY | 2024-06-10 00:56 | XMS_ITS | Clinical Summary ---
Author Organization [facility] Address [address] [place] [phone] Phone Care Team Providers Care Manufacturing Engineer Name Role Phone Unavailable Primary Care Provider Unavailabl e Allergies No known active allergies Medications Medication Sig Dispensed Refills Start Date End Date Status warfarin (COUMADIN) 5 MG tablet TAKE 7.5MG 4 DAYS A WEEK AND 10MG 3 DAYS A WEEK OR DIRECTED BY PHYSICIAN. 01/01/2022 Active warfarin (COUMADIN) 7.5 MG tablet TAKE 1 TABLET BY MOUTH DIRECTED ON SUN, E, FRI, TH, AND SAT OR DIRECTED. 01/07/2022 Active Enoxaparin Sodium 100 MG/ML solution prefilled syringe INJECT 0.9 ML (90 MG TOTAL) UNDER THE SKIN EVERY 12 (TWELVE) HOURS 01/02/2022 Active Cholecalciferol 50 MCG (1999 UT) capsule Take 2,000 Units by mouth 01/23/2021 Active tacrolimus (PROGRAF) 1 MG capsule 2 capsules twice a day 120 capsule 6 01/10/2022 Active mycophenolate (MYFORTIC) 360 MG EC tablet Take 2 tablets (720 mg total) by mouth 2 (two) times a day 120 tablet 6 01/10/2022 Active Active Problems Problem Noted Date Diagnosed Date Long-term current use of anticoagulant 2 History of mitral valve replacement 12/12/2021 Chronic kidney disease, stage 2 (mild) 1 End stage renal disease 10/17/2020 History of mechanical prosthetic mitral valve re placement 10/17/2020 History of parathyroidectomy 10/17/2020 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 0 10/17/2020 Hypoparathyroidism 10/17/2020 Kidney transplant status 10/17/2020 Status post nephrectomy 10/17/2020 Osteoarthritis 10/17/2020 Secondary hyperparathyroidism of renal origin Urethral stricture 10/17/2020 Urinary tract infection 10/17/2020 Family History Medical History Relation Comments Heart disease Father Relation Status Comments Father Social History Tobacco Use Types Packs/Day Years [...] Sign Reading Time Taken Comments Blood Pressure 130/74 01/10/2022 2:58 PM CDT Pulse - - Temperature 36.7 C (98 F) 01/10/2022 2:58 PM CDT Respiratory Rate 18 01/10/2022 2:58 PM CDT Oxygen Saturation - - Inhaled Oxygen Concentration - - Weight 88.4 kg (194 lb 12.8 oz) 01/10/2022 2:58 PM CDT Height 185.4 cm (6' 1 ) 01/10/2022 2:58 PM CDT Body Mass Index 25.7 01/10/2022 2:58 PM CDT Plan of Treatment Health Maintenance Due Date Last Done Comments Influenza Vaccine (#1) 2023
--- NOTE | 2024-06-10 11:00 | ECG_ITS ---
Test Date: 2024-06-10 12:43:44 Measurements Intervals [place] Rate: 74 P: 123 SC: 200 QRS: 77 QRSD: 155 T: 5 QT: 450 QTc: 502 Interpretive Statements SINUS RHYTHM BORDERLINE AV CONDUCTION DELAY RIGHT BUNDLE BRANCH BLOCK CONSIDER INFERIOR INFARCT, AGE INDETERMINATE BASELINE ARTIFACT- I, III, AVR, AVL, AVF, V2-V3 ABNORMAL ECG Compared to ECG 06/10/2024 11:31:24 Atrial flutter no longer present Electronically Signed On 06-10-2024 17:01:48 WIRELESS WATCHER by Dez Fonseca D.O.
--- OUTSIDE RECORDS SUMMARY | 2024-06-10 11:27 | XMS_ITS | Encounter Summary ---
Author Organization [employer] [facility] , [facility] Address [address] [place] [phone] Phone Care Team Providers Care Undergraduate Advisor Name Role Phone Lyndon Lockhart MD Primary Care Provider + Reason for Visit * Reason Comments Med Change Request Encounter Details Date Type Department Care Team (Late st Contact Info) Description 05/24/2021 Refill [place] [facility] [facility], [address] [address] [place] [address] [place] [address] 1 [place] [address] Social History Tobacco Use Types [...] on filedocumented in this encounter Care Teams Undergraduate Advisor Relationship Specialty [place] [address] [place] [address] PCP - General 11/28/21 documented as of this encounter
--- OUTSIDE RECORDS SUMMARY | 2024-06-10 11:27 | XMS_ITS | Referral Summary ---
Author Organization [facility] Address [address] [place] [address] Care Team Providers Care Ore Grader Name Role Phone Pcp Outside [facility], Unknown Primary Care Provider U navailable [...] trivalent 2012,01/20/2012,01/31/2010,02/05,03/09/2001,01/23/1999,03/08/1997 ,01/29/1996 MMR 07/25/1992 Novel Influenza [id number], Uns pecified Formulation 02/16/2009 PPD 03/23/2011 Pneumococcal [...] Comments Blood Pressure 106/56 03/29/2015 12:43 AM SPRINKLING TRUCK DRIVER Pulse 77 03/29/2015 12:43 AM SPRINKLING TRUCK DRIVER Temperature 36.8 C (98.2 F) 03/28/2015 8:43 PM SPRINKLING TRUCK DRIVER Respiratory Rate 18 03/29/2015 12:43 AM SPRINKLING TRUCK DRIVER Oxygen Saturation 97% 03/29/2015 12:43 AM SPRINKLING TRUCK DRIVER Inhaled Oxygen Concentration - - Weight 81.6 kg (180 lb) 03/28/2015 8:43 PM SPRINKLING TRUCK DRIVER Height 174.6 cm (5' 8.75 ) 03/28/2015 8:43 PM CS T Body Mass Index 26.78 03/28/2015 8:43 PM SPRINKLING TRUCK DRIVER Plan of Treatment Not on file Advance [...] 3:03 PM 03/31/2012 11:08 PM Care Teams Ore Grader Relationship Specialty Start Date End Date Pcp Outside [facility], Unknown NO KNOWN ADDRESS ON FILE PCP - General 10/29/23
--- OUTSIDE RECORDS SUMMARY | 2024-06-10 11:27 | XMS_ITS | Encounter Summary ---
Author Organization [facility] Address [address] [place] [address] Care Team Providers Care Motion Picture Camera Operator Name Role Phone Pcp, Non-Ah Primary Care Provider Unavailabl e Pcp Outside [facility], Unknown Primary Care Provider U navailable Encounter Details Date Type Department Care Team (Late st Contact Info) Description 05/12/2013 Off Premise 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
--- OUTSIDE RECORDS SUMMARY | 2024-06-10 11:27 | XMS_ITS | Encounter Summary ---
Author Organization [employer] [facility] , [facility] Address [address] [place] [phone] Phone Care Team Providers Care Card Maker Name Role Phone Lyndon Lockhart MD Primary Care Provider + Reason for Visit * Reason Comments Med Change Request Encounter Details Date Type Department Care Team (Late st Contact Info) Description 11/08/2021 Refill [facility] [employer] [facility], [address] [address] [place] [address] [place] [address] 1 [place] [address] Social History Tobacco Use Types [...] on filedocumented in this encounter Care Teams Card Maker Relationship Specialty [place] [address] [place] [phone] PCP - General 11/28/21 documented as of this encounter
--- OUTSIDE RECORDS SUMMARY | 2024-06-10 11:27 | XMS_ITS | Clinical Summary ---
Author Organization [facility] Address [address] [place] [address] Phone Care Team Providers Care Telemetry Technician Name Role Phone Unavailable Primary Care Provider [...]
--- OUTSIDE RECORDS SUMMARY | 2024-06-10 11:27 | XMS_ITS | Clinical Summary ---
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 Kidney disease followed by Dr. Miller Family [...] Comments Blood Pressure 106/56 03/29/2015 12:43 AM STRUCTURAL STEEL ERECTOR Pulse 77 03/29/2015 12:43 AM STRUCTURAL STEEL ERECTOR Temperature 36.8 C (98.2 F) 03/28/2015 8:43 PM STRUCTURAL STEEL ERECTOR Respiratory Rate 18 03/29/2015 12:43 AM STRUCTURAL STEEL ERECTOR Oxygen Saturation 97% 03/29/2015 12:43 AM STRUCTURAL STEEL ERECTOR Inhaled Oxygen Concentration - - Weight 81.6 kg (180 lb) 03/28/2015 8:43 PM STRUCTURAL STEEL ERECTOR Height 174.6 cm (5' 8.75 ) 03/28/2015 8:43 PM CS T Body Mass Index 26.78 03/28/2015 8:43 PM STRUCTURAL STEEL ERECTOR Plan of Treatment Health Maintenance Due Date [...] 3:03 PM 03/31/2012 11:08 PM Care Teams Public Relations Analyst Relationship Specialty Start Date End Date Pcp Outside [facility], Unknown NO KNOWN ADDRESS ON FILE PCP - General 10/29/23
--- OUTSIDE RECORDS SUMMARY | 2024-06-10 11:27 | XMS_ITS | Encounter Summary ---
Author Organization [facility] Address [address] [place] [address] Care Team Providers Care Manager Retail Sales Name Role Phone Pcp, Non- Primary Care Provider Unavailabl e Pcp Outside [facility], Unknown Primary Care Provider U navailable Encounter Details Date Type Department Care Team (Late st Contact Info) Description 09/30/2012 Off Premise [facility] [address] [facility] [address] [place] [address] Social History Tobacco Use Types Packs/Day Years [...] on filedocumented in this encounter Care Teams Manager Retail Sales Relationship Specialty Start Date End Date Pcp, Non-Ah PCP - General 07/12/13 10/28/23 Pcp Outside [facility], Unknown NO KNOWN ADDRESS ON FILE PCP - General 10/29/23 documented as of this encounter
--- OUTSIDE RECORDS SUMMARY | 2024-06-10 11:27 | XMS_ITS | Encounter Summary ---
Author Organization [facility] Address [address] [place] [address] Care Team Providers Care Machine Printer Name Role Phone Jane Patel MD Primary Care Provider [phone] Pcp, Non- Primary Care Provider Unavailabl e Pcp Outside [facility], Unknown Primary Care Provider U navailable Encounter Details Date Type Department Care Team (Late st Contact Info) Description 07/05/2011 Off Premise [facility] [address] [facility] [address] F[address] [place], [place] [id number] Social History Tobacco Use Types Packs/Day Years [...] on filedocumented in this encounter Care Teams Machine Printer Relationship Specialty Start Date End Date Jane Patel MD [address] [facility] [address] [place] [address] PCP - General Internal Medicine 06/12/11 10/24/11 Pcp, Non- PCP - General 07/12/13 10/28/23 Pcp Outside [facility], Unknown NO KNOWN ADDRESS ON FILE PCP - General 10/29/23 documented as of this encounter
--- OUTSIDE RECORDS SUMMARY | 2024-06-10 11:27 | XMS_ITS | Clinical Summary ---
Author Organization [facility] [employer] [facility] [employer] [facility] Address [address] [phone] Phone Care Team Providers Care Lighting Specialist Name Role Phone Lyndon Lockhart MD Primary [...] series) 04/10 Influenza Vaccine (#1) 2023 Insurance [facility] [employer] Care Teams Lighting Specialist Relationship Specialty Start [place] [address] [place] [phone] PCP - General 11/28/21
[2024-06-10 12:13] LABS: Anion Gap 13 mmol/L (4-12); Blood Urea Nitrogen 23 mg/dL (9-20); Calcium 7.1 mg/dL (8.4-10.2); Carbon Dioxide 26 mmol/L (22-30); Chloride 105 mmol/L (98-107); Estimated CRCL calculation 76 ml/min; Estimated Glomerular Filt Rate > 60; Glucose 98 mg/dL (65-110); Magnesium 1.5 mg/dL (1.6-2.3); Potassium 4.3 mmol/L (3.4-5.0); Sodium 144 mmol/L (137-145)
[2024-06-10 12:19] LABS: INR 2.1; Prothrombin Time 24.2 Seconds (11.1-14.7)
--- NOTE | 2024-06-10 12:30 | ECG_ITS ---
Test Date: 2024-06-10 11:31:24 Measurements Intervals [place] Rate: 90 P: 118 MN: 95 QRS: 95 QRSD: 173 T: 5 QT: 408 QTc: 500 Interpretive Statements ATRIAL FLUTTER/TACHYCARDIA WITH VENTRICULAR BIGEMINY RIGHT BUNDLE BRANCH BLOCK BASELINE ARTIFACT- I, II, III, AVR, AVF ABNORMAL ECG No previous ECG available for comparison Electronically Signed On 06-10-2024 11:49:07 TIE BUCKER by Dez Fonseca D.O.
--- NOTE | 2024-06-10 12:45 | WPDHPUPDATE1 ---
History and Physical Update Update Date/Time: 06/10/24 12:35 History and Physical has been reviewed, including an updated exam of the patient. There are NO changes in the patient's condition. Risks, benefits, and alternatives have been discussed and questions answered. Patient agrees to proceed with procedure.
--- NOTE | 2024-06-10 12:45 | WPDMODSED ---
Moderate Sedation Note-Pt Data Patient Data Allergies Allergy/AdvReac Type Severity Reaction Status Date / Time nafcillin Allergy Intermediate Other Verified 06/10/24 11:49 Home Medications ?Medication ?Instructions ?Recorded ?Confirmed ?Type aspirin 81 mg chewable tablet 81 mg PO DAILY 02/23/22 06/09/24 History warfarin 7.5 mg tablet See Rx Instructions .Route .COMPLEX 02/23/22 06/09/24 History tacrolimus 1 mg capsule, 2 mg (2 x 1 mg) PO BID #360 caps 09/08/23 06/09/24 Rx immediate-release mycophenolate sodium 360 mg 720 mg (2 x 360 mg) PO BID #180 01/27/24 06/09/24 Rx tablet,delayed release tabs metoprolol succinate 50 mg 50 mg PO DAILY 06/09/24 06/09/24 History tablet,extended release 24 hr Current Medications: Active Medications Sodium Chloride (Normal Saline Iv) 1,000 mls @ 30 mls/hr IV CONT .Q24H [facility] Sedation/Anesthesia: No previous sedation/anesthesia problems (including family history). [facility] Past Medical History Medical History Fistula And left upper arm, not in use, was used for dialysis prior to kidney transplant History of recurrent UTIs Kidney transplant failure First transplant lasted for 14 years Urethral stricture At causing him to go into kidney failure Surgical History Surgical History History of abdominal surgery History of parathyroid surgery Hx of artificial heart valve replacement Kidney transplanted X2 dual Social History Social History (Updated 05/15/22 @ 11:16 by Penny Christina MA) Smoking status: Never smoker Tobacco type: cigarettes Second hand tobacco smoke exposure: No Alcohol intake: never Substance use: never Substance use type: does not use Lack of Transportation: No Lack of Food: Never True Current Housing: I Have Housing Concerned About Future Housing: No Difficulty Paying Gas/Electric Bills: No Difficulty Paying for Meds: YES Currently Unemployed: No Education: Bachelor's Degree Living arrangements: with family Occupation/Education: occupation Gender identity (if verbalized by the patient): Male Sexual Orientation (if Verbalized by the Patient): Straight or Heterosexual Spiritual care concerns: No Mod Sed Physical Exam Physical Exam Pre Procedural Exam: Variation: Heart Rate and Heart Rhythm Hours since solid foods: 12 Hours since liquid intake: 12 Mallampati Classification: class II Internal Medicine - PN: Obj Da Vital Signs Vital Signs: Vital Signs - 24 hr 06/10/24 11:56 06/10/24 12:35 06/10/24 12:40 Temperature 37.0 C Pulse Rate 124 H 114 H 93 Respiratory Rate 20 18 18 Blood Pressure 155/88 H 128/89 124/79 Pulse Oximetry 98 95 96 Oxygen Delivery Room Air Nasal Cannula Nasal Cannula Oxygen Flow Rate 2 2 Meds/Results Medications: Active Medications Generic Name Dose Route Start Last Admin Trade Name Freq PRN Reason Stop Dose Admin Sodium Chloride 1,000 mls @ 30 mls/hr 06/10/24 11:00 Normal Saline Iv IV CONT .Q24H [facility] Labs 06/10/24 11:52 Labs: Laboratory Results - last 24 hr 06/10/24 11:52 PT 24.2 H INR 2.1 Sodium 144 Potassium 4.3 Chloride 105 Carbon Dioxide 26 Anion Gap 13 H BUN 23 H Creatinine 1.18 Estim Creat Clear Calc 76 Estimated GFR > 60 Glucose 98 Calcium 7.1 L Magnesium 1.5 L ASA Classification/Sedation ASA Classification/Sedation ASA Class: II Emergent: No Risks: Risks, benefits and alternatives explained and patient/family accepted plan for sedation. Patient re-evaluated immediately prior to sedation.
--- NOTE | 2024-06-10 12:46 | WPDCARDVER ---
Cardioversion Cardioversion Date of procedure: 06/10/24 Procedure: Synchronized cardioversion Pre-op diagnosis: Paroxysmal atrial fibrillation Post-op diagnosis: Same Indications: 49-year-old man with paroxysmal atrial fibrillation was referred for cardioversion Description of procedure: After confirmation of atrial fibrillation, defibrillator pads were placed on patient's chest. Once patient is properly sedated, 200 joules of synchronized electricity was delivered with scientology of sinus rhythm with occasional is significant pauses less than 3 seconds and frequent PACs Sedation: 4 mg of Versed intravenous and 100 mcg of fentanyl intravenous Findings: Protestant of sinus rhythm Conclusion: Protestant of sinus rhythm. Continue anticoagulation. Continue beta-blockers.
== END 2024-06-10 14:30 | disposition home or self-care (01) ==
PROVIDERS: Visit Provider Internal Medicine
PROC: 5A2204Z Restoration of Cardiac Rhythm, Single (ICD-10-PCS; principal; 2024-06-10 12:30)
DX: I48.0 Paroxysmal atrial fibrillation (principal); R94.31 Abnormal electrocardiogram [ECG] [EKG]; Z79.82 Long term (current) use of aspirin; Z79.01 Long term (current) use of anticoagulants; Z98.890 Other specified postprocedural states; Z94.0 Kidney transplant status; Z95.2 Presence of prosthetic heart valve
CPT/HCPCS: 36415; 80048; 83735; 85610; 92960; J2250; J3010; J7030

== ENCOUNTER 2024-07-09 14:48 | Outpatient (RCR) | payer OTHER, SELFPAY ==
[2024-06-02 11:08] LABS: INR 2.7; Prothrombin Time 29.3 Seconds (11.1-14.7)
[2024-07-09 15:24] LABS: INR 3.3; Prothrombin Time 33.4 Seconds (11.1-14.7)
== END 2024-08-31 23:59 | disposition home or self-care (01) ==
LOC: ANHLAB 14:48
PROVIDERS: Visit Provider Internal Medicine Cardiovascular Disease
DX: Z51.81 Encounter for therapeutic drug level monitoring (principal); Z79.01 Long term (current) use of anticoagulants
CPT/HCPCS: 36415; 85610

== ENCOUNTER 2024-07-09 14:49 | Outpatient (CLI) | payer OTHER, SELFPAY ==
--- OUTSIDE RECORDS SUMMARY | 2024-07-09 14:59 | XMS_ITS | Clinical Summary ---
Author Organization [facility] [employer] [facility] [employer] [facility] Address [address] [address] Phone Care Team Providers Care Cook Syrup Maker Name Role Phone Lyndon Lockhart MD [...] series) 04/10 Influenza Vaccine (#1) 2023 Insurance [facility] [employer] [employer] Care Teams Cook Syrup Maker Relationship Specialty [place] [address] [place] [phone] PCP - General 11/28/21
--- OUTSIDE RECORDS SUMMARY | 2024-07-09 14:59 | XMS_ITS | Encounter Summary ---
Author Organization [employer] CARE , [facility] Address [address] [place] [phone] Phone Care Team Providers Care Deliver Driver Name Role Phone Lyndon Lockhart MD Primary Care Provider + Reason for Visit * Reason Comments Med Change Request Encounter Details Date Type Department Care Team (Late st Contact Info) Description 11/08/2021 Refill [place] [employer] [facility], [address] [address] [place] [address] [place] [address] 1 [place] [address] Social History Tobacco Use Types [...] on filedocumented in this encounter Care Teams Deliver Driver Relationship Specialty [place] [address] [place] [phone] PCP - General 11/28/21 documented as of this encounter
--- OUTSIDE RECORDS SUMMARY | 2024-07-09 14:59 | XMS_ITS | Clinical Summary ---
Author Organization [facility] Address [address] [place] [address] Phone Care Team Providers Care Mask Inspector Name Role Phone Unavailable Primary Care Provider [...]
--- OUTSIDE RECORDS SUMMARY | 2024-07-09 14:59 | XMS_ITS | Encounter Summary ---
Author Organization [email or web address] [facility] , [facility] Address [address] [place] [phone] Phone Care Team Providers Care Deckhand Clam Dredge Name Role Phone Lyndon Lockhart MD Primary Care Provider + Reason for Visit * Reason Comments Med Change Request Encounter Details Date Type Department Care Team (Late st Contact Info) Description 05/24/2021 Refill [place] [facility], [address] [address] [place] [address] [place] [address] 1 [place] [address] Social History Tobacco Use Types [...] on filedocumented in this encounter Care Teams Deckhand Clam Dredge Relationship Specialty Start [place] [address] [place] [phone] PCP - General 11/28/21 documented as of this encounter
[2024-07-09 15:18] LABS: Creatinine Urine 36.8 mg/dL; Total Protein Urine Random 23 mg/dL; Ur Ttl Prot Creatinine Ratio 0.63 mg/mg (0-0.20)
[2024-07-09 15:23] LABS: Albumin Level 4.9 g/dL (3.5-5.1); Anion Gap 11 mmol/L (4-12); Blood Urea Nitrogen 22 mg/dL (9-20); Calcium 7.9 mg/dL (8.4-10.2); Carbon Dioxide 29 mmol/L (22-30); Chloride 101 mmol/L (98-107); Estimated Glomerular Filt Rate > 60; Glucose 108 mg/dL (65-110); Phosphorus 3.7 mg/dL (2.5-4.5); Potassium 4.3 mmol/L (3.4-5.0); Sodium 141 mmol/L (137-145)
== END 2024-07-09 14:50 | disposition home or self-care (01) ==
LOC: ANHLAB 14:49
PROVIDERS: Visit Provider Internal Medicine Nephrology
DX: Z94.0 Kidney transplant status (principal)
CPT/HCPCS: 36415; 80069; 82570; 84156

== ENCOUNTER 2024-11-09 13:33 | Outpatient (RCR) | payer OTHER, SELFPAY ==
[2024-11-09 14:36] LABS: INR 2.8; Prothrombin Time 28.1 Seconds (11.1-14.7)
== END 2025-02-07 23:59 | disposition home or self-care (01) ==
LOC: ANHLAB 13:33
PROVIDERS: Visit Provider Internal Medicine Cardiovascular Disease
DX: Z51.81 Encounter for therapeutic drug level monitoring (principal); Z79.01 Long term (current) use of anticoagulants
CPT/HCPCS: 36415; 85610

== ENCOUNTER 2025-02-08 13:41 | Outpatient (CLI) | payer OTHER, SELFPAY ==
[2025-02-08 14:48] LABS: Albumin Level 4.5 g/dL (3.5-5.1); Anion Gap 12 mmol/L (4-12); Blood Urea Nitrogen 26 mg/dL (9-20); Calcium 7.5 mg/dL (8.4-10.2); Carbon Dioxide 24 mmol/L (22-30); Chloride 103 mmol/L (98-107); Estimated Glomerular Filt Rate 53; Glucose 130 mg/dL (65-110); Potassium 3.9 mmol/L (3.4-5.0); Sodium 139 mmol/L (137-145)
[2025-02-08 16:21] LABS: Total Protein Urine Random 19 mg/dL; Ur Ttl Prot Creatinine Ratio 0.16 mg/mg (0-0.20)
--- OUTSIDE RECORDS SUMMARY | 2025-02-08 16:51 | XMS_ITS | Clinical Summary ---
Author Organization [facility] Address [address] [place] [address] Phone Care Team Providers Care Doctor Podiatric Medicine Name Role Phone Unavailable Primary Care Provider Unavailabl e Allergies No known active allergies Medications warfarin (COUMADIN) 5 MG tablet TAKE 7.5MG 4 DAYS A WEEK AND 10MG 3 DAYS A WEEK OR DIRECTED BY PHYSICIAN. 01/01/2022 Active warfarin (COUMADIN) 7.5 MG tablet TAKE 1 TABLET BY MOUTH DIRECTED ON SUN, TUE, WED, THUR, AND SAT OR DIRECTED. 01/07/2022 Active Enoxaparin [...] 12/12/2021 Chronic kidney disease, stage 2 (mild) End stage renal disease 10/17/2020 History of [...] at Not on file Legal Sex Male 7:55 AM MDT Gender Identity Not on file Sexual Orientation [...] 2:58 PM CDT Height 185.4 cm (6' 1) 01/10/2022 2:58 PM CDT Body Mass Index 25.7 01/10/2022 2:58 PM CDT Plan of Treatment Health Maintenance Due Date Last Done Comments Influenza Vaccine (#1) 2024 Insurance [employer]
--- OUTSIDE RECORDS SUMMARY | 2025-02-08 16:51 | XMS_ITS ---
Author Organization [facility] Address [address] [place] [address] Care Team Providers Care Substitute Nurse Name Role Phone Unavailable Unavailable Unavailable Allergies, Adverse Reactions, Alerts This patient has no known allergies or adverse reactions. Problems This patient has no known problems.
== END 2025-02-08 13:42 | disposition home or self-care (01) ==
LOC: ANHLAB 13:42
PROVIDERS: Visit Provider Internal Medicine Nephrology
DX: Z94.0 Kidney transplant status (principal)
CPT/HCPCS: 36415; 80069; 82570; 84156